=== PATIENT | male | born 1965 | race African-American/Black ===

== ENCOUNTER 2021-06-07 11:12 | Emergency (ER) | payer OTHER ==
[~2021-06-07] VITALS: Ht 175.3 cm; Wt 104.0 kg
[2021-06-07] MEDS ORDERED: DEXTROSE 50% WATER 50ML SYRINGE IV ONE (11:15)
[2021-06-07 12:24] LABS: BASOPHILS % 0.3 % (0.0-2.0); EOSINOPHILS % 0.2 % (0.0-5.0); HEMOGLOBIN. 12.8 g/dL (14.0-18.0); MEAN CORPUSCULAR HEMOGLOBIN 27.5 pg (28.0-32.0); MEAN CORPUSCULAR VOLUME 88.4 fL (80.0-94.0); MEAN PLATELET VOLUME 9.2 fl (7.4-10.4); MONOCYTES % 5.7 % (2.0-8.0); NEUTROPHILS % 77.8 % (40.0-76.0); PLATELET 243 x1000/uL (130-400); RED BLOOD CELL COUNT 4.65 mill/uL (4.7-6.1); RED CELL DISTRIBUTION WIDTH 19.3 % (11.6-14.6)
[2021-06-07 12:26] LABS: CHLORIDE 104 mEq/L (98-107)
[2021-06-07 12:31] LABS: ETHANOL BLOOD < 10 mg/dL
[2021-06-07 12:33] LABS: CLARITY URINE CLEAR (CLEAR); COLOR URINE YELLOW (YELLOW); KETONES URINE NEGATIVE (NEGATIVE); LEUKOCYTE ESTERASE URINE NEGATIVE (NEGATIVE); NITRITE URINE NEGATIVE (NEGATIVE); OCCULT BLOOD URINE TRACE (NEGATIVE); PH URINE 6.5 (4.5-8.0); PROTEIN URINE 2+ (NEGATIVE); SPECIFIC GRAVITY URINE 1.012 (1.005-1.030)
[2021-06-07] MEDS ORDERED: SODIUM CHLORIDE 0.9% 1,000 ML IV ONE (12:45)
[2021-06-07 13:00] LABS: *AMPHETAMINES SCREEN URINE NEGATIVE (NEGATIVE); *BARBITURATES SCREEN URINE NEGATIVE (NEGATIVE); CANNABINOID URINE SCREEN NEGATIVE (NEGATIVE)
[2021-06-07 13:01] LABS: *BENZODIAZEPINES SCREEN URINE NEGATIVE (NEGATIVE)
[2021-06-07 13:03] LABS: PHENCYCLIDINE URINE SCREEN NEGATIVE (NEGATIVE)
[2021-06-07 13:04] LABS: OPIATES URINE SCREEN PRESUMTIVE POSITIVE (NEGATIVE)
[2021-06-07 13:05] LABS: *COCAINE SCREEN URINE NEGATIVE (NEGATIVE)
[2021-06-07 13:08] LABS: METHADONE URINE SCREEN NEGATIVE (NEGATIVE)
[2021-06-07] MEDS ORDERED: POTASSIUM CHLORIDE 20MEQ TABLET SR PO ONE (13:15)
[2021-06-07] MEDS ORDERED: POTA20TA82 PO (13:44)
[2021-06-07 17:00] VITALS: BP 165/109
[2021-06-07] MEDS ORDERED: DEXT 5%/0.9% NACL 1,000 ML IV ONE (17:15)
[2021-06-07] MEDS ORDERED: KCL 10MEQ/50ML PREMIX 50 ML IV ONE (17:15)
== END 2021-06-07 18:00 | disposition home or self-care (01) ==
LOC: ER 11:12
DX: E11.649 Type 2 diabetes mellitus with hypoglycemia without coma (principal); E87.6 Hypokalemia; R00.0 Tachycardia, unspecified; I10 Essential (primary) hypertension; Z88.6 Allergy status to analgesic agent
CPT/HCPCS: 36415; 70450; 71045; 80053; 80305; 80320; 81003; 82962; 84484; 85025; 93005; 96361; 96374; 99285; J7030; J7042; J3480; G0480

== ENCOUNTER 2024-06-21 06:55 | Inpatient (IN) | payer OTHER ==
[~2024-06-21] VITALS: Ht 167.6 cm; Wt 79.4 kg
[2024-06-21] MEDS: BLOOD SUGAR DIAGNOSTIC STRIP TEST SCH (06:00)
[~2024-06-21 06:55] MED LIST: POTA-205 PO
[2024-06-21 06:56] VITALS: O2SAT 100
[2024-06-21] MEDS ORDERED: HYDRALAZINE 20MG/ML VIAL IV STA (07:10)
[2024-06-21] MEDS ORDERED: METOPROLOL TARTRATE 5MG/5ML VIAL IV STA (07:10)
[2024-06-21 07:53] LABS: CHLORIDE 102 mEq/L (98-107); POTASSIUM 4.5 mEq/L (3.5-5.1); SODIUM 136 mEq/L (136-145)
[2024-06-21 07:54] LABS: CALCIUM 8.5 mg/dL (8.7-10.4); CARBON DIOXIDE 30 mEq/L (21-32)
[2024-06-21 07:56] LABS: BASOPHILS % 0.5 % (0.0-2.0); EOSINOPHILS % 1.3 % (0.0-5.0); HEMATOCRIT. 29.3 % (42.0-52.0); HEMOGLOBIN. 9.4 g/dL (14.0-18.0); INR 1.1; LYMPHOCYTES % 8.5 % (20.0-50.0); MEAN CORPUSCULAR HEMOGLOBIN 30.3 pg (28.0-32.0); MEAN CORPUSCULAR HGB CONC 32.1 g/dL (31.0-37.0); MEAN CORPUSCULAR VOLUME 94.4 fL (80.0-94.0); MEAN PLATELET VOLUME 8.8 fl (7.4-10.4); NEUTROPHILS % 86.7 % (40.0-76.0); PLATELET 246 x1000/uL (130-400); PROTHROMBIN TIME 11.8 sec (9.6-11.0); RED BLOOD CELL COUNT 3.11 mill/uL (4.7-6.1); RED CELL DISTRIBUTION WIDTH 15.5 % (11.6-14.6); WHITE BLOOD COUNT 10.2 x1000/uL (4.5-11.0)
[2024-06-21 07:59] LABS: GLUCOSE 156 mg/dL (70-105); UREA NITROGEN BLOOD 21 mg/dL (9-23)
[2024-06-21 08:26] LABS: TROPONIN I HIGH SENSITIVITY 86 ng/L (3.0-53)
[2024-06-21] MEDS ORDERED: ETOMIDATE 2MG/ML 10ML VIAL IV ONE (08:45)
[2024-06-21] MEDS ORDERED: ROCURONIUM BROMIDE 10MG/ML VIAL 5ML IV ONE (08:45)
[2024-06-21] MEDS ORDERED: PROPOFOL 10MG/ML 100ML 100 ML IV ONE (08:45)
[2024-06-21 09:12] LABS: BG BASE EXCESS 4.9 mmol/L (-2.0-3.0); BG CARBOXYHEMOGLOBIN 0.1 % (0.5-1.5); BG DEOXYHEMOGLOBIN 10.6 % (0.0-5.0); BG FRACTION INSPIRED OXYGEN 36; BG HCO3 ACT 30.2 mmol/L (21.0-28.0); BG METHEMOGLOBIN 0.3 % (0.5-1.5); BG OXYGEN SATURATION 89.4 % (94.0-98.0); BG PCO2 48.4 mmHg (35.0-48.0); BG PH 7.413 (7.350-7.450); BG PO2 59.6 mmHg (83.0-108.0); BG SAMPLE SITE LEFT BRACHIAL; BG TOTAL HEMOGLOBIN 10.6 g/dL (13.5-17.5); BG VENT MODE NASAL CANNULA
[2024-06-21] MEDS: METOPROLOL TARTRATE 5MG/5ML VIAL IV NR (09:46)
[2024-06-21] MEDS: SODIUM CHLORIDE 0.9% 500 ML IV ONE (09:53)
[2024-06-21] MEDS: ACETAMINOPHEN 325MG TABLET PO ONE (09:53)
[2024-06-21] MEDS: HYDRALAZINE 20MG/ML VIAL IV NR (09:54)
[2024-06-21 10:03] LABS: TROPONIN I HIGH SENSITIVITY 259 ng/L (3.0-53)
[2024-06-21] MEDS ORDERED: GUAIFENESIN 200MG/10ML SUGAR FREE UDC PO PRN (10:45)
[2024-06-21] MEDS ORDERED: ONDANSETRON HCL 4MG/2ML INJ IV PRN (10:45)
[2024-06-21] MEDS ORDERED: DOCUSATE SODIUM 100MG CAPSULE PO PRN (10:45)
[2024-06-21] MEDS ORDERED: CLONIDINE 0.1MG TABLET PO PRN (10:45)
[2024-06-21] MEDS ORDERED: ENOXAPARIN 40MG/0.4ML SYR SUBCUT SCH (11:00)
[2024-06-21 11:35] LABS: TROPONIN I HIGH SENSITIVITY 493 ng/L (3.0-53)
[2024-06-21] MEDS: ASPIRIN 81MG TABLET PO SCH (12:15)
[2024-06-21] MEDS: AMPICILLIN SOD/SULBACTAM NA 3 G in SODIUM CHLORIDE 0.9% 100 ML IV SCH (12:16)
[2024-06-21] MEDS: FUROSEMIDE 40MG/4ML VIAL IVP NR (12:16)
[2024-06-21 12:47] LABS: CLARITY URINE CLEAR (CLEAR); COLOR URINE YELLOW (YELLOW); GLUCOSE URINE TRACE (NEGATIVE); KETONES URINE NEGATIVE (NEGATIVE); LEUKOCYTE ESTERASE URINE NEGATIVE (NEGATIVE); NITRITE URINE NEGATIVE (NEGATIVE); OCCULT BLOOD URINE NEGATIVE (NEGATIVE); PH URINE 6.5 (4.5-8.0); PROTEIN URINE 1+ (NEGATIVE); SPECIFIC GRAVITY URINE 1.012 (1.005-1.030)
[2024-06-21 13:01] LABS: SQUAMOUS EPITHELIAL CELL URINE 1+ /lpf (RARE/1+)
[2024-06-21 13:02] LABS: RBC URINE 0-2 /hpf (0-2); WBC URINE 0-2 /hpf (0-2)
[2024-06-21 13:03] LABS: BACTERIA URINE TRACE
[2024-06-21 13:08] LABS: *AMPHETAMINES SCREEN URINE NEGATIVE (NEGATIVE); *BARBITURATES SCREEN URINE NEGATIVE (NEGATIVE); *BENZODIAZEPINES SCREEN URINE NEGATIVE (NEGATIVE)
[2024-06-21 13:09] LABS: *COCAINE SCREEN URINE NEGATIVE (NEGATIVE); CANNABINOID URINE SCREEN NEGATIVE (NEGATIVE); ECSTASY MDMA SCREEN URINE NEGATIVE (NEGATIVE); METHADONE URINE SCREEN NEGATIVE (NEGATIVE); OPIATES URINE SCREEN PRESUMPTIVE POSITIVE (NEGATIVE); PHENCYCLIDINE URINE SCREEN NEGATIVE (NEGATIVE)
[2024-06-21 13:13] LABS: TROPONIN I HIGH SENSITIVITY 798 ng/L (3.0-53)
[2024-06-21] MEDS ORDERED: DEXTROSE 50% WATER 50ML SYRINGE IV PRN (14:00)
[2024-06-21] MEDS: ENOXAPARIN 150MG/ML SYR SUBCUT SCH (16:00)
[2024-06-21] MEDS ORDERED: IPRATROPIUM/ALBUTEROL 0.5-3(2.5)MG/3ML NEB HHN PRN (16:30)
[2024-06-21] MEDS: SODIUM CHLORIDE 0.9% 250 ML IV ONE (16:45)
[2024-06-21] MEDS: INSULIN LISPRO 100 UNITS/ML SUBCUT SCH (18:20)
[2024-06-21] MEDS ORDERED: INSULIN LISPRO 100 UNITS/ML SUBCUT SCH (18:20)
[2024-06-21] MEDS: VANCOMYCIN 2,000 MG in DEXT 5% WATER 500 ML IV NR (18:46)
[2024-06-21] MEDS ORDERED: MORPHINE SULFATE 2 MG/ML INJ (NOT FOR IM USE) IV PRN (20:15)
[2024-06-21] MEDS ORDERED: FAMOTIDINE 20MG TABLET PO SCH (21:00)
[2024-06-21] MEDS: NITROGLYCERIN 0.4MG TABLET SL SL PRN (21:34)
[2024-06-21] MEDS: INSULIN GLARGINE 100 UNITS/ML SUBCUT SCH (22:00)
[2024-06-21 22:30] LABS: IRON 18 ug/dL (65-175)
[2024-06-21 22:33] LABS: TOTAL IRON BINDING CAPACITY 552 ug/dl (250-425)
[2024-06-21] MEDS: AMPICILLIN/SULBACTAM 3G in SODIUM CHLORIDE 0.9% 100ML IV SCH (22:40)
[2024-06-21] MEDS: KETOROLAC 30MG/ML VIAL IV NR (22:44)
[2024-06-21] MEDS: FAMOTIDINE 20MG/2ML VIAL IV SCH (22:44)
[2024-06-21] MEDS: ATORVASTATIN CALCIUM 40MG TABLET PO SCH (23:16)
[2024-06-21 23:30] VITALS: BP 114/58; PULSE 102; RESP 20; TEMP 38.00304; TEMP 38.0304; O2SAT 97
[2024-06-22 01:44] LABS: HEMOGLOBIN 9.7 g/dL (14.0-18.0)
[2024-06-22 01:57] LABS: CALCIUM 8.7 mg/dL (8.7-10.4)
[2024-06-22 02:02] LABS: CREATINE KINASE MB FRACTION 1.9 ng/mL (0.5-3.6)
[2024-06-22 04:00] VITALS: BP 139/64; PULSE 105; RESP 16; TEMP 36.3918; O2SAT 100
[2024-06-22 04:04] LABS: TRIGLYCERIDE 64 mg/dL (0-150)
[2024-06-22 04:05] LABS: LDL CHOLESTEROL 43 mg/dL (5-100)
[2024-06-22 04:06] LABS: CHOLESTEROL 100 mg/dL (<200); HDL CHOLESTEROL 39 mg/dL (>55)
[2024-06-22 04:08] LABS: T4 FREE 1.64 ng/dL (0.89-1.76); THYROID STIMULATING HORMONE 0.76 uIU/mL (0.55-4.78)
[2024-06-22] MEDS: MAGNESIUM 4 G PREMIX 100 ML IV NR ×2 (04:57→16:09)
[2024-06-22] MEDS: ENOXAPARIN 150MG/ML SYR SUBCUT SCH (06:04)
[2024-06-22] MEDS: INSULIN LISPRO 100 UNITS/ML SUBCUT SCH (07:40)
[2024-06-22 08:00] VITALS: BP 170/93; PULSE 112; RESP 22; TEMP 35.78064; O2SAT 100
[2024-06-22] MEDS ORDERED: AMI2 (09:12)
[2024-06-22] MEDS ORDERED: HYDR25TA78 PO (09:12)
[2024-06-22] MEDS ORDERED: TRAM50TA3 PO (09:12)
[2024-06-22] MEDS ORDERED: T4 (09:12)
[2024-06-22] MEDS ORDERED: ACETAMINOPHEN WITH CODEINE 300/60MG TABLET PO PRN (09:15)
[2024-06-22] MEDS: ISOSORBIDE MONONITRATE 30MG TABLET SR 24HR PO SCH (09:22)
[2024-06-22] MEDS ORDERED: NALOXONE HCL 0.4MG/ML VIAL IV PRN (09:30)
[2024-06-22] MEDS: TRAMADOL 50MG TABLET PO PRN (10:27)
[2024-06-22 12:00] VITALS: BP 173/76; PULSE 60; RESP 20; TEMP 37.2252; O2SAT 100
[2024-06-22] MEDS: METOPROLOL TARTRATE 50MG TABLET PO SCH (12:45)
[2024-06-22] MEDS: FUROSEMIDE 40MG/4ML VIAL IVP NR (13:04)
[2024-06-22] MEDS: HYDRALAZINE 20MG/ML VIAL IV PRN (13:39)
[2024-06-22] MEDS ORDERED: MAGNESIUM 2 G PREMIX 50 ML IV ONE (14:30)
[2024-06-22] MEDS ORDERED: PIPERACILLIN/TAZO 3.375G/50ML IV SCH (15:00)
[2024-06-22 16:00] VITALS: BP 129/72; PULSE 65; RESP 20; TEMP 36.61404; O2SAT 98
[2024-06-22 18:35] LABS: BASOPHILS % 0.5 % (0.0-2.0); EOSINOPHILS % 0.6 % (0.0-5.0); HEMATOCRIT. 30.4 % (42.0-52.0); HEMOGLOBIN. 9.9 g/dL (14.0-18.0); LYMPHOCYTES % 9.4 % (20.0-50.0); MEAN CORPUSCULAR HEMOGLOBIN 30.9 pg (28.0-32.0); MEAN CORPUSCULAR HGB CONC 32.6 g/dL (31.0-37.0); MEAN CORPUSCULAR VOLUME 94.7 fL (80.0-94.0); MEAN PLATELET VOLUME 9.4 fl (7.4-10.4); MONOCYTES % 4.8 % (2.0-8.0); NEUTROPHILS % 84.7 % (40.0-76.0); PLATELET 237 x1000/uL (130-400); RED BLOOD CELL COUNT 3.21 mill/uL (4.7-6.1); RED CELL DISTRIBUTION WIDTH 15.6 % (11.6-14.6); WHITE BLOOD COUNT 15.1 x1000/uL (4.5-11.0)
[2024-06-22 18:44] LABS: POTASSIUM 4.2 mEq/L (3.5-5.1)
[2024-06-22 18:46] LABS: CALCIUM 8.5 mg/dL (8.7-10.4)
[2024-06-22 18:50] LABS: CREATININE 1.9 mg/dL (0.6-1.3)
[2024-06-22 20:00] VITALS: BP_SYST 116; BP_SYST 147; BP_DIAS 53; BP_DIAS 83; PULSE 75; RESP 20; TEMP 36.55848; O2SAT 98
[2024-06-22] MEDS: PIPERACILLIN/TAZO 3.375G/50ML IV SCH (21:17)
[2024-06-23] VITALS: BP 129/80; PULSE 82; RESP 20; TEMP 36.114; O2SAT 98
[2024-06-23 00:20] LABS: TROPONIN I HIGH SENSITIVITY 495 ng/L (3.0-53)
[2024-06-23 04:00] VITALS: BP 101/68; PULSE 79; RESP 20; TEMP 36.89184; O2SAT 98
[2024-06-23 06:05] LABS: BASOPHILS % 0.2 % (0.0-2.0); EOSINOPHILS % 1.3 % (0.0-5.0); HEMATOCRIT. 27.9 % (42.0-52.0); HEMOGLOBIN. 9.1 g/dL (14.0-18.0); LYMPHOCYTES % 14.3 % (20.0-50.0); MEAN CORPUSCULAR HEMOGLOBIN 30.5 pg (28.0-32.0); MEAN CORPUSCULAR HGB CONC 32.5 g/dL (31.0-37.0); MEAN CORPUSCULAR VOLUME 93.8 fL (80.0-94.0); MEAN PLATELET VOLUME 9.4 fl (7.4-10.4); MONOCYTES % 5.8 % (2.0-8.0); NEUTROPHILS % 78.4 % (40.0-76.0); PLATELET 229 x1000/uL (130-400); RED BLOOD CELL COUNT 2.97 mill/uL (4.7-6.1); RED CELL DISTRIBUTION WIDTH 15.7 % (11.6-14.6); WHITE BLOOD COUNT 12.8 x1000/uL (4.5-11.0)
[2024-06-23] MEDS: ENOXAPARIN 80MG/0.8ML SYR SUBCUT SCH (06:10)
[2024-06-23 06:20] LABS: CARBON DIOXIDE 33 mEq/L (21-32); CHLORIDE 99 mEq/L (98-107); POTASSIUM 4.1 mEq/L (3.5-5.1); SODIUM 137 mEq/L (136-145)
[2024-06-23 06:21] LABS: CALCIUM 8.8 mg/dL (8.7-10.4)
[2024-06-23 06:26] LABS: CREATININE 2.2 mg/dL (0.6-1.3); GLUCOSE 99 mg/dL (70-105); UREA NITROGEN BLOOD 28 mg/dL (9-23)
[2024-06-23 06:28] LABS: PHOSPHORUS 3.7 mg/dL (2.5-4.9)
[2024-06-23 06:35] LABS: TROPONIN I HIGH SENSITIVITY 545 ng/L (3.0-53)
[2024-06-23 08:00] VITALS: BP 138/80; PULSE 117; RESP 20; TEMP 36.50292; O2SAT 100
[2024-06-23] MEDS: FERROUS SULFATE 300MG/5ML UDC PO SCH (08:58)
[2024-06-23 11:20] LABS: CREATINE KINASE 131 IU/L (46-171)
[2024-06-23] MEDS: POVIDONE-IODINE 10% TOPICAL SOLN 240ML TOP NR (11:46)
[2024-06-23 12:00] VITALS: BP 129/78; PULSE 74; RESP 20; TEMP 36.16956; O2SAT 100
[2024-06-23] MEDS: VANCOMYCIN 500MG/100ML IV NR (13:11)
[2024-06-23 16:00] VITALS: BP 118/73; PULSE 112; RESP 18; TEMP 37.00296; O2SAT 97
[2024-06-23 20:00] VITALS: BP 113/54; PULSE 59; RESP 20; TEMP 36.55848; O2SAT 98
[2024-06-23] MEDS: MELATONIN 3MG TABLET PO ONE (21:07)
[2024-06-24] VITALS: BP 120/80; PULSE 82; RESP 18; TEMP 36.55848; O2SAT 97
[2024-06-24 04:00] VITALS: BP 122/64; PULSE 50; RESP 18; TEMP 36.6696; O2SAT 98
[2024-06-24 08:00] VITALS: BP 132/70; PULSE 70; RESP 20; TEMP 37.16964; O2SAT 95
[2024-06-24] MEDS ORDERED: LIDOCAINE HCL 1% 10 MG/ML 10ML VIAL ONE (08:13)
[2024-06-24 11:16] LABS: POTASSIUM 3.9 mEq/L (3.5-5.1)
[2024-06-24 11:17] LABS: CALCIUM 8.4 mg/dL (8.7-10.4)
[2024-06-24 11:18] LABS: BASOPHILS % 0.5 % (0.0-2.0); EOSINOPHILS % 1.8 % (0.0-5.0); HEMATOCRIT. 26.8 % (42.0-52.0); HEMOGLOBIN. 8.5 g/dL (14.0-18.0); LYMPHOCYTES % 22.3 % (20.0-50.0); MEAN CORPUSCULAR HEMOGLOBIN 29.9 pg (28.0-32.0); MEAN CORPUSCULAR HGB CONC 31.5 g/dL (31.0-37.0); MEAN CORPUSCULAR VOLUME 94.8 fL (80.0-94.0); MEAN PLATELET VOLUME 9.6 fl (7.4-10.4); MONOCYTES % 6.8 % (2.0-8.0); NEUTROPHILS % 68.6 % (40.0-76.0); PLATELET 279 x1000/uL (130-400); RED BLOOD CELL COUNT 2.83 mill/uL (4.7-6.1); WHITE BLOOD COUNT 11.9 x1000/uL (4.5-11.0)
[2024-06-24 11:21] LABS: CREATININE 2.8 mg/dL (0.6-1.3)
[2024-06-24] MEDS: PIPERACILLIN/TAZO 3.375G/50ML IV SCH (11:27)
[2024-06-24 12:16] VITALS: BP 107/71; PULSE 69; RESP 20; TEMP 37.16964; O2SAT 96
[2024-06-24] MEDS: FUROSEMIDE 40MG/4ML VIAL IVP NR (12:42)
[2024-06-24] MEDS: FERROUS SULFATE 325MG TABLET PO SCH (12:42)
== END 2024-06-24 18:11 | disposition short-term general hospital (02) | DRG 871 ==
LOC: ER 07:18 → 8WST 09:37 → EDBEDREQ 09:44
PROVIDERS: ADMIT Hospitalist; ATTEND Hospitalist
DX: A41.9 Sepsis, unspecified organism (principal); I21.A1 Myocardial infarction type 2; J96.01 Acute respiratory failure with hypoxia; I13.0 Hypertensive heart and chronic kidney disease with heart failure and stage 1 through stage 4 chronic kidney disease, or unspecified chronic kidney disease; E87.3 Alkalosis; I16.1 Hypertensive emergency; I48.92 Unspecified atrial flutter; L97.518 Non-pressure chronic ulcer of other part of right foot with other specified severity; N17.9 Acute kidney failure, unspecified; E11.621 Type 2 diabetes mellitus with foot ulcer; D50.9 Iron deficiency anemia, unspecified; D63.1 Anemia in chronic kidney disease; M54.50 Low back pain, unspecified; E11.22 Type 2 diabetes mellitus with diabetic chronic kidney disease; E78.00 Pure hypercholesterolemia, unspecified; E83.42 Hypomagnesemia; Z20.822 Contact with and (suspected) exposure to COVID-19; G89.29 Other chronic pain; N18.30 Chronic kidney disease, stage 3 unspecified; I44.1 Atrioventricular block, second degree; I48.91 Unspecified atrial fibrillation; I50.9 Heart failure, unspecified; Z89.431 Acquired absence of right foot; Z89.432 Acquired absence of left foot; Z88.6 Allergy status to analgesic agent; Z79.899 Other long term (current) drug therapy
CPT/HCPCS: 36415; 36573; 36600; 71045; 73630; 76770; 78580; 80048; 80061; 80202; 80305; 81003; 82375; 82550; 82553; 82728; 82805; 82962; 83036; 83540; 83550; 83735; 83880; 84100; 84439; 84443; 84484; 85014; 85018; 85025; 85379; 87070; 87426; 93005; 93306; 99285; C1725; J0295; J0360; J1650; J1815; J1885; J1940; J2543; J3370; J3475; J3490; J7030; J7050; J7060

== ENCOUNTER 2025-04-06 08:33 | Inpatient (IN) | payer OTHER ==
[2025-04-06] VITALS (25 sets, daily range): BP systolic 110–144; BP diastolic 70–85; PULSE 75–112; RESP 15–24; TEMP 36.5–37; O2SAT 97–100
[~2025-04-06] VITALS: Ht 172.7 cm; Wt 91.2 kg
[~2025-04-06 08:33] MED LIST changes: +AMI2; +HYDR25TA78 PO; +T4; +TRAM50TA3 PO
[2025-04-06] MEDS: DILTIAZEM HCL 5MG/ML 5ML VIAL IV ONE (08:52)
[2025-04-06 09:12] LABS: HEMATOCRIT. 40.0 % (42.0-52.0); HEMOGLOBIN. 12.6 g/dL (14.0-18.0); MEAN PLATELET VOLUME 9.4 fl (7.4-10.4); PLATELET 200 x1000/uL (130-400); RED BLOOD CELL COUNT 4.25 mill/uL (4.7-6.1); RED CELL DISTRIBUTION WIDTH 15.3 % (11.6-14.6)
[2025-04-06] MEDS: DILTIAZEM HCL 125 MG in DEXT 5% WATER 100 ML IV ONE (09:19)
[2025-04-06 09:23] LABS: INR 1.2
[2025-04-06 09:26] LABS: CREATININE 2.4 mg/dL (0.6-1.3); UREA NITROGEN BLOOD 25 mg/dL (9-23)
[2025-04-06 09:51] LABS: TROPONIN I HIGH SENSITIVITY 630 ng/L (3.0-53)
[2025-04-06 10:00] LABS: BAND% 8.0 % (1.0-6.0); LYMPHOCYTES % MANUAL 4.0 % (20.0-50.0); MONOCYTES % MANUAL 4.0 % (2.0-8.0); NEUTROPHILS % MANUAL 84.0 % (45.0-75.0); PLATELET ESTIMATE NORMAL
[2025-04-06] MEDS ORDERED: ONDANSETRON HCL 4MG/2ML INJ IV PRN (10:30)
[2025-04-06] MEDS ORDERED: ACETAMINOPHEN 325MG TABLET PO PRN (10:30)
[2025-04-06] MEDS ORDERED: CLONIDINE 0.1MG TABLET PO PRN (10:30)
[2025-04-06] MEDS ORDERED: DEXTROSE 50% WATER 50ML SYRINGE IV PRN (10:30)
[2025-04-06] MEDS ORDERED: IPRATROPIUM/ALBUTEROL 0.5-3(2.5)MG/3ML NEB HHN PRN (10:30)
[2025-04-06] MEDS ORDERED: DILTIAZEM HCL 125 MG in DEXT 5% WATER 100 ML IV PRN (11:00)
[2025-04-06] MEDS ORDERED: HEPARIN 5000 UNITS/ML VIAL IV SCH (11:30)
[2025-04-06] MEDS ORDERED: HEPARIN 5000 UNITS/ML VIAL IV PRN ×2 (11:30)
[2025-04-06] MEDS ORDERED: CEFEPIME 1GM IN DEXT 5% 50ML IV SCH (11:30)
[2025-04-06] MEDS ORDERED: HEPARIN 25,000 UNITS PREMIX 250 ML IV PRN (11:30)
[2025-04-06 12:06] LABS: PHOSPHORUS 3.3 mg/dL (2.5-4.9)
[2025-04-06 12:39] LABS: TROPONIN I HIGH SENSITIVITY 7030 ng/L (3.0-53)
[2025-04-06] MEDS: DILTIAZEM HCL 60MG TABLET PO SCH (13:18)
[2025-04-06] MEDS: ASPIRIN 325MG EC TABLET PO SCH (13:18)
[2025-04-06] MEDS: ACETAMINOPHEN 325MG TABLET PO PRN (13:18)
[2025-04-06] MEDS: SODIUM CHLORIDE 0.9% 500 ML IV ONE (13:19)
[2025-04-06] MEDS: BLOOD SUGAR DIAGNOSTIC STRIP TEST SCH (13:19)
[2025-04-06] MEDS: FAMOTIDINE 20MG/2ML VIAL IV SCH (13:19)
[2025-04-06] MEDS: CEFEPIME 1GM/50ML 50 ML IV SCH (13:21)
[2025-04-06] MEDS: ENOXAPARIN 80MG/0.8ML SYR SUBCUT SCH (13:22)
[2025-04-06] MEDS: INSULIN LISPRO 100 UNITS/ML SUBCUT SCH ×2 (13:39→18:07)
[2025-04-06 15:22] LABS: CREATINE KINASE MB FRACTION 33.0 ng/mL (0.5-3.6)
[2025-04-06] MEDS: VANCOMYCIN 1.25GM/250ML 250 ML IV SCH (15:27)
[2025-04-06 16:00] LABS: TROPONIN I HIGH SENSITIVITY 10484.0 ng/L (3.0-53)
[2025-04-06] MEDS ORDERED: NITROGLYCERIN 0.4MG TABLET SL SL PRN (17:30)
[2025-04-06] MEDS: ATORVASTATIN CALCIUM 40MG TABLET PO SCH (20:24)
[2025-04-06] MEDS: VANCOMYCIN 750MG PMX (XELLIA) 150 ML IV SCH (20:24)
[2025-04-06] MEDS: CEFEPIME 2GM/100ML 100 ML IV SCH (21:24)
[2025-04-06] MEDS: INSULIN GLARGINE 100 UNITS/ML SUBCUT SCH (21:25)
[2025-04-06] MEDS ORDERED: INSULIN GLARGINE 100 UNITS/ML SUBCUT SCH (22:00)
[2025-04-06 22:44] LABS: CLARITY URINE CLEAR (CLEAR); COLOR URINE YELLOW (YELLOW)
[2025-04-06 22:49] LABS: PH URINE 5.5 (4.5-8.0); SPECIFIC GRAVITY URINE 1.022 (1.005-1.030)
[2025-04-06 22:50] LABS: GLUCOSE URINE 3+ (NEGATIVE); KETONES URINE TRACE (NEGATIVE); LEUKOCYTE ESTERASE URINE NEGATIVE (NEGATIVE); NITRITE URINE POSITIVE (NEGATIVE); OCCULT BLOOD URINE 1+ (NEGATIVE); PROTEIN URINE 1+ (NEGATIVE); UROBILINOGEN URINE 1.0 E.U./dL (0.2-1.0)
[2025-04-06 22:52] LABS: BACTERIA URINE 3+; SQUAMOUS EPITHELIAL CELL URINE FEW /lpf (RARE/1+)
[2025-04-06 23:03] LABS: *AMPHETAMINES SCREEN URINE NEGATIVE (NEGATIVE); *BARBITURATES SCREEN URINE NEGATIVE (NEGATIVE); *BENZODIAZEPINES SCREEN URINE NEGATIVE (NEGATIVE); *COCAINE SCREEN URINE NEGATIVE (NEGATIVE); METHADONE URINE SCREEN NEGATIVE (NEGATIVE); OPIATES URINE SCREEN NEGATIVE (NEGATIVE); PHENCYCLIDINE URINE SCREEN NEGATIVE (NEGATIVE)
[2025-04-06 23:04] LABS: CANNABINOID URINE SCREEN NEGATIVE (NEGATIVE); ECSTASY MDMA SCREEN URINE NEGATIVE (NEGATIVE)
[2025-04-06] MEDS: SODIUM HYPOCHLORITE 0.125% 473ML SOLUTION TOP SCH (23:48)
[2025-04-07] VITALS (35 sets, daily range): BP systolic 89–162; BP diastolic 44–129; PULSE 72–103; RESP 13–34; TEMP 36.1–36.9; O2SAT 96–100
[2025-04-07 00:24] LABS: CREATINE KINASE MB FRACTION 31.3 ng/mL (0.5-3.6)
[2025-04-07 01:01] LABS: TROPONIN I HIGH SENSITIVITY 10763.0 ng/L (3.0-53)
[2025-04-07 05:39] LABS: BASOPHILS % 0.2 % (0.0-2.0); EOSINOPHILS % 0.8 % (0.0-5.0); HEMATOCRIT. 33.6 % (42.0-52.0); HEMOGLOBIN. 10.7 g/dL (14.0-18.0); LYMPHOCYTES % 10.6 % (20.0-50.0); MEAN PLATELET VOLUME 9.5 fl (7.4-10.4); MONOCYTES % 8.1 % (2.0-8.0); NEUTROPHILS % 80.3 % (40.0-76.0); PLATELET 193 x1000/uL (130-400); RED BLOOD CELL COUNT 3.66 mill/uL (4.7-6.1); RED CELL DISTRIBUTION WIDTH 15.0 % (11.6-14.6)
[2025-04-07 06:10] LABS: CREATININE 1.8 mg/dL (0.6-1.3); TRIGLYCERIDE 72 mg/dL (0-150); UREA NITROGEN BLOOD 30 mg/dL (9-23)
[2025-04-07 06:11] LABS: LDL CHOLESTEROL 31 mg/dL (5-100)
[2025-04-07 06:13] LABS: T4 FREE 1.53 ng/dL (0.89-1.76)
[2025-04-07 06:49] LABS: TROPONIN I HIGH SENSITIVITY 8484 ng/L (3.0-53)
[2025-04-07] MEDS: POTASSIUM CHLORIDE 20MEQ TABLET SR PO SCH (07:09)
[2025-04-07] MEDS: ASPIRIN 81MG EC TABLET PO SCH (08:19)
[2025-04-07] MEDS: INSULIN LISPRO 100 UNITS/ML SUBCUT SCH (13:13)
[2025-04-07] MEDS: SODIUM CHLORIDE 0.9% 1,000 ML IV SCH (15:12)
== END 2025-04-07 20:30 | disposition short-term general hospital (02) | DRG 871 ==
LOC: ER 08:33 → CVICU 10:20 → EDBEDREQTM 10:36 → EDBEDREQ 10:36 → ENRESERV 10:40 → 8WST 04-07 13:29
PROVIDERS: ADMIT Hospitalist; ATTEND Hospitalist
DX: A41.9 Sepsis, unspecified organism (principal); I21.4 Non-ST elevation (NSTEMI) myocardial infarction; J96.01 Acute respiratory failure with hypoxia; I50.32 Chronic diastolic (congestive) heart failure; I13.0 Hypertensive heart and chronic kidney disease with heart failure and stage 1 through stage 4 chronic kidney disease, or unspecified chronic kidney disease; N17.9 Acute kidney failure, unspecified; E78.5 Hyperlipidemia, unspecified; I48.91 Unspecified atrial fibrillation; E11.621 Type 2 diabetes mellitus with foot ulcer; L97.519 Non-pressure chronic ulcer of other part of right foot with unspecified severity; E11.22 Type 2 diabetes mellitus with diabetic chronic kidney disease; N18.9 Chronic kidney disease, unspecified; E78.00 Pure hypercholesterolemia, unspecified; E87.6 Hypokalemia; I25.10 Atherosclerotic heart disease of native coronary artery without angina pectoris; Z79.01 Long term (current) use of anticoagulants; Z79.4 Long term (current) use of insulin; Z79.84 Long term (current) use of oral hypoglycemic drugs; Z88.6 Allergy status to analgesic agent; Z89.432 Acquired absence of left foot
CPT/HCPCS: 36415; 71045; 73630; 74176; 80048; 80061; 80305; 81003; 82550; 82553; 82962; 83036; 83605; 83735; 83880; 84100; 84145; 84439; 84443; 84484; 85025; 93005; 93306; 93880; 93970; 99291; J0692; J1308; J1650; J1815; J3370; J3490; J7030; J7060

== ENCOUNTER 2025-09-27 11:43 | Inpatient (IN) | payer OTHER, MEDICARE ==
[~2025-09-27] VITALS: Ht 188 cm; Wt 111.6 kg
[2025-09-27] VITALS (18 sets, daily range): BP systolic 114–139; BP diastolic 71–88; PULSE 70–103; RESP 0–29; TEMP 36.7–37.7524; O2SAT 93–100
[2025-09-27] MEDS: SODIUM CHLORIDE 0.9% (SEPSIS BOLUS) IV ONE (12:28)
[2025-09-27] MEDS: PIPERACILLIN/TAZO 3.375G/50ML 50 ML IV ONE (12:28)
[2025-09-27 12:31] LABS: HEMATOCRIT. 30.2 % (42.0-52.0); HEMOGLOBIN. 9.7 g/dL (14.0-18.0); MEAN PLATELET VOLUME 9.7 fl (7.4-10.4); PLATELET 219 x1000/uL (130-400); RED BLOOD CELL COUNT 3.38 mill/uL (4.7-6.1); RED CELL DISTRIBUTION WIDTH 16.3 % (11.6-14.6)
[2025-09-27 12:48] LABS: INR 1.2
[2025-09-27] MEDS: VANCOMYCIN 1G PREMIX 200 ML IV ONE (13:19)
[2025-09-27 13:20] LABS: CREATININE 1.8 mg/dL (0.6-1.3); ETHANOL BLOOD < 10 mg/dL (<10); UREA NITROGEN BLOOD 25 mg/dL (9-23)
[2025-09-27 13:21] LABS: PROTEIN TOTAL 6.6 g/dL (6.0-8.3)
[2025-09-27 13:22] LABS: ASPARTATE AMINOTRANSFERASE 25 IU/L (<34); BILIRUBIN DIRECT 0.3 mg/dL (<=3.0); BILIRUBIN TOTAL 0.5 mg/dL (0.1-1.0)
[2025-09-27 13:26] LABS: TROPONIN I HIGH SENSITIVITY 231 ng/L (3.0-53)
[2025-09-27] MEDS ORDERED: ONDANSETRON HCL 4MG/2ML INJ IV PRN (14:15)
[2025-09-27] MEDS ORDERED: ACETAMINOPHEN 325MG TABLET PO PRN ×2 (14:15)
[2025-09-27] MEDS ORDERED: DOCUSATE SODIUM 100MG CAPSULE PO PRN (14:15)
[2025-09-27] MEDS ORDERED: CLONIDINE 0.1MG TABLET PO PRN (14:15)
[2025-09-27] MEDS ORDERED: IPRATROPIUM/ALBUTEROL 0.5-3(2.5)MG/3ML NEB HHN PRN (14:15)
[2025-09-27 16:04] LABS: LYMPHOCYTES % MANUAL 6.0 % (20.0-50.0); MONOCYTES % MANUAL 5.0 % (2.0-8.0); NEUTROPHILS % MANUAL 89.0 % (45.0-75.0); PLATELET ESTIMATE NORMAL
[2025-09-27] MEDS: DILTIAZEM HCL 60MG TABLET PO SCH (16:56)
[2025-09-27] MEDS ORDERED: DEXTROSE 50% WATER 50ML SYRINGE IV PRN (17:00)
[2025-09-27 18:03] LABS: BG BASE EXCESS -3.2 mmol/L (-2.0-3.0); BG CARBOXYHEMOGLOBIN 0.8 % (0.5-1.5); BG DEOXYHEMOGLOBIN 5.5 % (0.0-5.0); BG FRACTION INSPIRED OXYGEN 21; BG HCO3 ACT 21.2 mmol/L (21.0-28.0); BG METHEMOGLOBIN 0.1 % (0.5-1.5); BG OXYGEN SATURATION 94.5 % (94.0-98.0); BG OXYHEMOGLOBIN 93.6 % (94.0-98.0); BG PCO2 35.2 mmHg (35.0-48.0); BG PH 7.397 (7.350-7.450); BG PO2 75.6 mmHg (83.0-108.0); BG SAMPLE SITE RIGHT RADIAL; BG TOTAL HEMOGLOBIN 10.4 g/dL (13.5-17.5); BG VENT MODE ROOM AIR
[2025-09-27] MEDS ORDERED: MELATONIN 3MG TABLET PO SCH (21:00)
[2025-09-27] MEDS: PIPERACILLIN/TAZO 3.375G/50ML IV SCH (21:49)
[2025-09-27] MEDS: ATORVASTATIN CALCIUM 40MG TABLET PO SCH (21:50)
[2025-09-27] MEDS: VANCOMYCIN 1G PREMIX 200 ML IV NR (21:50)
[2025-09-27] MEDS: APIXABAN 5 MG TABLET PO SCH (21:50)
[2025-09-27] MEDS: MELATONIN 3MG TABLET PO SCH (21:55)
[2025-09-27] MEDS: BLOOD SUGAR DIAGNOSTIC STRIP TEST SCH (21:55)
[2025-09-27] MEDS ORDERED: DILTIAZEM HCL 60MG TABLET PO SCH (22:00)
[2025-09-28] VITALS (61 sets, daily range): BP systolic 80–161; BP diastolic 45–123; PULSE 60–90; RESP 14–38; TEMP 36.4–37.7; O2SAT 89–100
[2025-09-28] MEDS ORDERED: DEXTROSE 50% WATER 50ML SYRINGE IV PRN (00:30)
[2025-09-28] MEDS: INSULIN LISPRO 100 UNITS/ML SUBCUT SCH (06:10)
[2025-09-28 06:18] LABS: BASOPHILS % 0.2 % (0.0-2.0); EOSINOPHILS % 1.0 % (0.0-5.0); HEMATOCRIT. 26.9 % (42.0-52.0); HEMOGLOBIN. 8.7 g/dL (14.0-18.0); LYMPHOCYTES % 10.1 % (20.0-50.0); MEAN PLATELET VOLUME 10.1 fl (7.4-10.4); MONOCYTES % 8.5 % (2.0-8.0); NEUTROPHILS % 80.2 % (40.0-76.0); PLATELET 206 x1000/uL (130-400); RED BLOOD CELL COUNT 3.03 mill/uL (4.7-6.1); RED CELL DISTRIBUTION WIDTH 16.5 % (11.6-14.6)
[2025-09-28 06:34] LABS: CREATININE 1.6 mg/dL (0.6-1.3)
[2025-09-28 06:35] LABS: LDL CHOLESTEROL 28 mg/dL (5-100); TRIGLYCERIDE 80 mg/dL (0-150); UREA NITROGEN BLOOD 25 mg/dL (9-23)
[2025-09-28 06:57] LABS: TROPONIN I HIGH SENSITIVITY 931 ng/L (3.0-53)
[2025-09-28] MEDS: ASPIRIN 81MG EC TABLET PO SCH (08:26)
[2025-09-28] MEDS: SODIUM HYPOCHLORITE 0.125% 473ML SOLUTION TOP SCH (11:00)
[2025-09-28] MEDS: MAGNESIUM 2 G PREMIX 50 ML IV SCH (12:22)
[2025-09-28] MEDS ORDERED: VANCOMYCIN 750MG PREMIX 150 ML IV SCH (15:00)
[2025-09-28] MEDS: VANCOMYCIN 1.25GM/250ML IV SCH (18:17)
[2025-09-28 19:03] LABS: GLUCOSE URINE 3+ (NEGATIVE); KETONES URINE NEGATIVE (NEGATIVE); LEUKOCYTE ESTERASE URINE NEGATIVE (NEGATIVE); NITRITE URINE NEGATIVE (NEGATIVE); OCCULT BLOOD URINE TRACE (NEGATIVE); PH URINE 5.5 (4.5-8.0); PROTEIN URINE 1+ (NEGATIVE); SPECIFIC GRAVITY URINE 1.021 (1.005-1.030); UROBILINOGEN URINE 0.2 E.U./dL (0.2-1.0)
[2025-09-28 19:45] LABS: CLARITY URINE SL HAZY (CLEAR); COLOR URINE STRAW (YELLOW)
[2025-09-28 19:47] LABS: BACTERIA URINE TRACE; MUCUS URINE TRACE /lpf (NONE/TRACE); RBC URINE 0-2 /hpf (0-2); SQUAMOUS EPITHELIAL CELL URINE FEW /lpf (RARE/1+); WBC URINE 0-2 /hpf (0-2)
[2025-09-29] VITALS (22 sets, daily range): BP systolic 113–146; BP diastolic 52–73; PULSE 69–80; RESP 14–29; TEMP 35.8–37.2; O2SAT 90–100
[2025-09-29 06:03] LABS: BASOPHILS % 0.2 % (0.0-2.0); EOSINOPHILS % 1.7 % (0.0-5.0); HEMATOCRIT. 27.2 % (42.0-52.0); HEMOGLOBIN. 8.8 g/dL (14.0-18.0); LYMPHOCYTES % 13.6 % (20.0-50.0); MEAN PLATELET VOLUME 10.0 fl (7.4-10.4); MONOCYTES % 10.9 % (2.0-8.0); NEUTROPHILS % 73.6 % (40.0-76.0); PLATELET 215 x1000/uL (130-400); RED BLOOD CELL COUNT 3.05 mill/uL (4.7-6.1); RED CELL DISTRIBUTION WIDTH 16.9 % (11.6-14.6)
[2025-09-29 06:19] LABS: TROPONIN I HIGH SENSITIVITY 511 ng/L (3.0-53)
[2025-09-29] MEDS: SODIUM CHLORIDE 0.9% 1,000 ML IV SCH (09:00)
[2025-09-29 09:08] LABS: CREATININE 1.9 mg/dL (0.6-1.3); UREA NITROGEN BLOOD 26 mg/dL (9-23)
[2025-09-29] MEDS: VANCOMYCIN 750MG/150ML (BAXTER) IV SCH (21:00)
[2025-09-30] VITALS (7 sets, daily range): BP systolic 114–148; BP diastolic 58–69; PULSE 68–74; RESP 16–18; TEMP 36.1–36.9; O2SAT 97–98
[2025-09-30] MEDS: LIDOCAINE HCL 1% 20ML VIAL INFIL SCH (11:02)
[2025-09-30] MEDS ORDERED: ASPI-1406 PO (16:13)
[2025-09-30] MEDS ORDERED: PIPE3.3772 IV (16:13)
[2025-09-30] MEDS ORDERED: DILT60TA4 PO (16:13)
[2025-09-30] MEDS ORDERED: APIX5TAB PO (16:13)
== END 2025-09-30 19:19 | disposition short-term general hospital (02) | DRG 853 ==
LOC: ER 11:43 → MICUSO 13:51 → EDBEDREQSVC 13:54 → EDBEDREQTM 13:54 → EDBEDREQ 13:54 → 5WST 09-29 05:13
PROVIDERS: ADMIT Family Medicine Adult Medicine; ATTEND Family Medicine Adult Medicine
PROC: 0QBL0ZZ Excision of Right Tarsal, Open Approach (ICD-10-PCS; principal; 2025-09-30)
DX: A41.89 Other specified sepsis (principal); I21.4 Non-ST elevation (NSTEMI) myocardial infarction; I47.20 Ventricular tachycardia, unspecified; I47.10 Supraventricular tachycardia, unspecified; N17.9 Acute kidney failure, unspecified; M86.8X7 Other osteomyelitis, ankle and foot; D64.9 Anemia, unspecified; E11.22 Type 2 diabetes mellitus with diabetic chronic kidney disease; Z79.01 Long term (current) use of anticoagulants; I13.0 Hypertensive heart and chronic kidney disease with heart failure and stage 1 through stage 4 chronic kidney disease, or unspecified chronic kidney disease; N18.30 Chronic kidney disease, stage 3 unspecified; I48.92 Unspecified atrial flutter; I50.32 Chronic diastolic (congestive) heart failure; E11.621 Type 2 diabetes mellitus with foot ulcer; E11.65 Type 2 diabetes mellitus with hyperglycemia; E78.5 Hyperlipidemia, unspecified; I48.91 Unspecified atrial fibrillation; E11.69 Type 2 diabetes mellitus with other specified complication; E11.51 Type 2 diabetes mellitus with diabetic peripheral angiopathy without gangrene; E83.42 Hypomagnesemia; I25.10 Atherosclerotic heart disease of native coronary artery without angina pectoris; L97.519 Non-pressure chronic ulcer of other part of right foot with unspecified severity; Z89.431 Acquired absence of right foot; Z89.432 Acquired absence of left foot; I25.2 Old myocardial infarction; Z79.82 Long term (current) use of aspirin; Z88.5 Allergy status to narcotic agent; Z88.6 Allergy status to analgesic agent
CPT/HCPCS: 36415; 36600; 71045; 73630; 73718; 76770; 80048; 80061; 80076; 80202; 80320; 81003; 82010; 82140; 82375; 82805; 82962; 83605; 83735; 83880; 84145; 84443; 84484; 85025; 87070; 87077; 87186; 88311; 93005; 93306; 93970; 94070; 94660; 94664; 96365; 96368; 99291; A4606; A6449; J1815; J2003; J2543; J3373; J3475; J7030; G0480